=== PATIENT | female | born 1965 | race Caucasian/White ===

== ENCOUNTER 2020-10-04 09:40 | Outpatient (CLI) | payer MEDICARE, MEDICAID, SELFPAY ==
--- NOTE | ~2020-10-04 | XR_ITS ---
XR chest 2V DATE: 10/04/2020 09:55 INDICATION: Shortness of breath. COPD. TECHNIQUE: PA and lateral views COMPARISON: 05/01/2017 PA and lateral chest FINDINGS: There is prominent widening of the right paratracheal stripe as well as some left superior mediastinal widening. CT thorax with intravenous contrast material is recommended for further evaluat ion. There is mild cardiomegaly. No hilar or mediastinal enlargement is detected. No pulmonary infiltrate or consolidation, pleural effusion or pulmonary vascular congestion or pneumo thorax. Diffuse osteopenia. IMPRESSION: Prominence of the right paratracheal and left superior mediastinal soft tissues; CT thora x examination with IV contrast material is recommended Mild cardiomegaly Reviewed, dictated and finalized at location B. IMPRESSION: Prominence of the right paratracheal and left superior mediastinal soft tissues; CT thorax examination with IV contrast material is recommended Mild cardiomegaly
== END 2020-10-04 09:41 | disposition home or self-care (01) ==
PROVIDERS: PCP Family Medicine; Visit Provider Nurse Practitioner
DX: J44.9 Chronic obstructive pulmonary disease, unspecified (principal); R06.02 Shortness of breath; I51.7 Cardiomegaly
CPT/HCPCS: 71046

== ENCOUNTER 2020-10-10 13:54 | Outpatient (CLI) | payer MEDICARE, MEDICAID, SELFPAY ==
--- NOTE | ~2020-10-10 | CT_ITS ---
EXAMINATION:CT diagnostic chest w con DATE: 10/10/2020 14:28 INDICATION: Abnormal chest radiographs. TECHNIQUE: Computed tomography (CT) of the chest was performed with 75 mL Omnipaque 350 intravenous c ontrast. Automated exposure control and iterative reconstruction technique were employed. The dose-le ngth product (DLP) was 932.57 mGy-cm. COMPARISON: Chest 2 views 10/04/2020 FINDINGS: There is mild atelectasis in the lungs bilaterally. No pleural effusion. The heart size is normal. No pericardial effusion. There is mild mediastinal lymphadenopathy, likely reactive. For exam ple, a right paratracheal node measures 10 x 13 mm. Mediastinal lipomatosis is noted. There is mild t horacic spondylosis. IMPRESSION: 1. Mediastinal lipomatosis, which correlates with the chest radiograph abnormality. Reviewed, dictated and finalized at location A. IMPRESSION: 1. Mediastinal lipomatosis, which correlates with the chest radiograph abnormal ity.
[2020-10-10 14:22] LABS: Estimated Glomerular Filt Rate > 60
== END 2020-10-10 13:55 | disposition home or self-care (01) ==
PROVIDERS: PCP Family Medicine; Visit Provider Nurse Practitioner
DX: R91.8 Other nonspecific abnormal finding of lung field (principal); E88.2 Lipomatosis, not elsewhere classified
CPT/HCPCS: 71260; Q9967

== ENCOUNTER → 2020-10-25 00:51 | Outpatient (CLI) | payer MEDICARE, MEDICAID, SELFPAY ==
[2020-10-25 20:45] LABS: SARS-CoV-2 RNA PCR Negative
== END ==
PROVIDERS: PCP Family Medicine; Visit Provider Internal Medicine Critical Care Medicine
DX: Z01.812 Encounter for preprocedural laboratory examination (principal); Z20.822 Contact with and (suspected) exposure to COVID-19
CPT/HCPCS: C9803; U0003; U0005

== ENCOUNTER 2020-10-27 09:04 | Outpatient (CLI) | payer MEDICARE, MEDICAID, SELFPAY ==
--- NOTE | 2020-11-02 14:53 | WPDSLEEPSTUD ---
Sleep Study Date of Study: 10/27/20 Ordering Provider: Dhruv Conn MD Interpreting Physician: Gladis Keenan MD Sleep Study Type: Polysomnogram Height: 1.57 m Weight: 142.882 kg Body Mass Index: 57.6 Neck Circumference (inches): 24 [place]: 12 Reason for Sleep Study JAMARCUS, needs new equipment , now using CPAP 11 cm Prior sleep studies 07/16/2014 : CPAP retitration, optimal pressure 11 cm; BMI 50.3 06/29/2013: CPAP retitration, optimum pressure 10 cm 10/03/2008: CPAP titration, optimal pressure 12 cm 11/04/2006: basic study, JAMARCUS Sleep History Nova Sosa is a 55 year old female with a 20 year history of obstructive sleep apnea, now using equipment that is over 5 years old. this needs to be replaced. She is referred for a re-titration. She uses her device every night. she snores when she does not use PAP machine. Her DME company is [employer]. She frequently awakens at night with heartburn, belching or coughing. She occasionally snores but it is not loud enough that others complain about it. She constantly has trouble sleeping with a cold. She rarely wakes up gasping for breath at night. She frequently has breathing problems at night observed by others. She does not sweat excessively night. She frequently notices her heart pounding or beating irregularly night. She constantly falls asleep during the day, occasionally involuntarily but never while driving. She does not fall asleep while exerting physical effort. She does not have loss of muscle tone was strong emotion. She does not feel paralyzed on waking or falling asleep. She constantly has vivid dreamlike scenes upon awakening or falling asleep. She is constantly afraid to go to sleep. She rarely has nightmares. She frequently remembers her dreams. She constantly has racing thoughts. She occasionally feels sad or depressed. She constantly has anxiety and worries about things. She frequently has muscular tension, frequently notices parts of her body jerking and she frequently kicks at night. She frequently has crawling and aching feelings in her legs. She frequently has leg pain during the night. She frequently has morning jaw pain and frequently grinds her teeth during sleep. She has pain during the day frequently and is bothered by pain at night as well. She constantly wakes up feeling stiff in the morning with sore or achy muscles and pain in the neck and spine. She has fatigue, memory problems, insomnia and feels shy. She does not work outside of the home. She reports gaining 70 lb in the last year. She reports that her health is poor. Normal bedtime is between midnight and 2:00 a.m. falling asleep quickly as she waits until she is very tired before trying to go to sleep. She wakes up typically 2-3 times at night and stays awake for 5 minutes but sometimes as long as 30 minutes. If it seems like she is not falling asleep quickly she does get up out of the bed until she is ready to fall asleep again. She takes naps. She sometimes feels refreshed after a short nap, other times does not wake up feeling refreshed. She is drowsy in the morning for 2 hours. She feels better in the evening compared other times of day. Habits: Never smoked tobacco. Caffeine 1 or 2 servings a day. No alcohol or recreational drugs. FORMERLY [facility] Past Medical History Medical History (Updated 11/02/20 @ 15:12 by Gladis Keenan MD) Arthritis Asthma-COPD overlap syndrome Diabetes Heartburn Hypertension Neuropathy Obstructive sleep apnea Surgical History Surgical History (Updated 11/02/20 @ 15:12 by Gladis Keenan MD) History of hysterectomy Family History Family History (Updated 02/26/18 @ 13:33 by DOCTOR UNKNOWN) Father Family history of chronic obstructive pulmonary disease Acute myocardial infarction Grandparent Family history of chronic obstructive pulmonary disease Other Diabetes mellitus Hypertension Social History Social Histo
[2020-11-02 16:28] VITALS: BMI 57.6
== END 2020-10-27 09:05 | disposition home or self-care (01) ==
LOC: ANHCSM 09:05
PROVIDERS: PCP Family Medicine; Visit Provider Family Medicine
DX: G47.33 Obstructive sleep apnea (adult) (pediatric) (principal); E66.9 Obesity, unspecified; Z68.43 Body mass index [BMI] 50.0-59.9, adult; E11.9 Type 2 diabetes mellitus without complications; I10 Essential (primary) hypertension; Z79.899 Other long term (current) drug therapy
CPT/HCPCS: 95810

== ENCOUNTER 2022-05-29 11:03 | Outpatient (CLI) | payer OTHER, SELFPAY ==
--- NOTE | ~2022-05-29 | XR_ITS ---
EXAMINATION: XR foot LT min 3V DATE: 05/29/2022 11:27 INDICATION: Plantar foot pain TECHNIQUE: Dorsoplantar, lateral, and 2 oblique views of the left foot were obtained. COMPARISON: 01/15/2019 FINDINGS: There is moderate osteoarthritis at the first metatarsophalangeal joint and multiple interp halangeal joints. No fractures identified. Bone alignment is normal. The soft tissues are normal. A p lantar calcaneal enthesophyte is noted. IMPRESSION: 1. No acute osseous abnormality. Reviewed, dictated and finalized at location F. ING CUTTER
== END 2022-05-29 11:04 | disposition home or self-care (01) ==
PROVIDERS: PCP Family Medicine; Visit Provider Nurse Practitioner Adult Health
DX: M79.672 Pain in left foot (principal)
CPT/HCPCS: 73630

== ENCOUNTER 2025-04-24 13:08 | Outpatient (CLI) | payer MEDICARE, MEDICAID, SELFPAY ==
--- NOTE | ~2025-04-24 | XR_ITS ---
EXAMINATION: XR chest 2V, 04/24/2025 13:20 CDT HISTORY: Shortness of Breath, Cough COMPARISON: No comparisons available. Technique: 2 views obtained. Findings: The lungs are clear, no effusion. No pneumothorax. Heart is normal size. Mediastinal and hilar contours are within normal limits. Bony thorax no acute abnormality. Impression: No acute cardiopulmonary abnormality. Reviewed, dictated and finalized at location P. Impression: No acute cardiopulmonary abnormality.
--- OUTSIDE RECORDS SUMMARY | 2025-04-24 13:12 | XMS_ITS | Encounter Summary ---
Author Organization [facility] Address [address] [address] Phone Care Team Providers Care Shoddy Mill Worker Name Role Phone Dhruv Conn MD Primary Care Provider Arielle Steward MD Unavailable Reason for Visit * Reason Comments Medication Refill Encounter Details Date Type Department Care Team (Late Contact Info) Description 01/04/2023 Refill [facility] - Endocrinology - [place] [address] [place] [address] Arielle Steward MD [address] [address] Medication Refill Social History Tobacco Use Types Packs/Day Years Used Date Smoking Tobacco: Never Smokeless Tobacco: Never Alcohol Use Standard Drinks/Week Comments No 0 (1 standard drink = 0.6 oz pur e alcohol) Sexually Active Control Partners Comments Yes Male Comments No Sex and Gender Information Value Date Recorded Sex Assigned at Not on file Legal Sex Female 7:38 PM CDT Gender Identity Not on file Sexual Orientation Not on file COVID-19 Exposure Response Date Recorded In the last 10 days, have yo u been in contact with someone who was confirmed or suspected to have Coronavirus/COVID-19? No / Unsure 01/06/2023 3:06 PM CDT documented as of this encounter Miscellaneous Notes * Telephone Encounter - Breann Carvajal RN - 01/04/2023 3:28 PM CDT Requested Prescriptions Pending Prescriptions Disp Refills ??? Insulin Pen Needle (Easy Touch Pen [place]) 32G X 5 MM Misc [Pharmacy Med Name: EASY TOUCH PEN NEEDLES [id number]] 500 Each 3 Sig: USE FIVE TIMES DAILY DIRECTED Next appt: 01/07/2023 documented in this encounter Plan of Treatment Upcoming Encounters Date Type Department Care Team (Late st Contact Info) Description 07/22/2025 1:30 PM FIELD [employer] AD[employer]OCATE Office Visit [facility] - Endocrinology - [place] [address] [place] [phone] Arielle Steward MD [address] [phone] documented as of this encounter Visit Diagnoses Not on filedocumented in this encounter Care Teams Shoddy Mill Worker Relationship Specialty Start Date End Date Dhruv Conn MD [address] [address] PCP - General Family Medicine 10/01/16 Arielle Steward MD [address] [phone] Consulting Physician Endocrinology 01/30/22 documented as of this encounter
--- OUTSIDE RECORDS SUMMARY | 2025-04-24 13:12 | XMS_ITS | Clinical Summary ---
Author Organization [facility] Address [address] [address] Phone Care Team Providers Care Census Clerk Name Role Phone Dhruv Conn MD Primary Care Provider [phone] Arielle Steward MD Unavailable Allergies No known active allergies Medications escitalopram (LEXAPRO) 10 MG Tablet Take 10 mg by mouth daily. Active Ergocalcifero l (VITAMIN D2 PO) Take 50,000 Units by mouth once a week. Active lisinopril (PRINIVIL, ZESTRIL) 20 MG Tablet Take 20 mg by mouth daily. Active PROAIR HFA 108 (90 Base) MCG/ACT Aerosol Solution 019 Active TRELEGY ELLIPTA 100-62.5-25 MCG/INH AEROSOL POWDER, BREATH ACTIVATED 019 Active omeprazole (PRILOSEC) 40 MG CAPSULE DELAYED RELEASE Active gabapentin (NEURONTIN) 300 MG Capsule TAKE 1 CAPSULE BY MOUTH THREE TIMES DAILY 020 Active Glucose Blood (GLUCOCARD EXPRESSION TEST) Strip 1 Strip by In Vitro route 4 times daily. Test four times daily. 400 Strip 3 020 Active Blood Glucose Monitoring Suppl (OneTouch Verio) w/Device Kit 1 Kit by Does not apply route 4 times daily. Test blood glucose 4x daily. E11.42, insulin dependent 1 Kit 021 Active OneTouch Delica Lancets 33G Misc 1 Lancet by Does not apply route 4 times daily. Test blood glucose 4x daily. E11.42, insulin dependent 400 Lancet 3 021 Active OneTouch Delica Lancets 33G MiscIndicatio ns:Type 2 diabetes mellitus with diabetic polyneuropath y, with long-term current use of insulin 1 Lancet by Does not apply route 4 times daily. Use to test blood glucose 3x daily. E11.42, insulin dependent 300 Lancet 3 021 Active Glucose Blood (OneTouch Verio) Strip Test blood glucose 3x daily. E11.42, insulin dependent 300 Strip 3 021 Active metoprolol Succinate (TOPROL-XL) 50 MG TABLET SR 24 HR Take 50 mg by mouth daily. Active hydroCHLOROth iazide 25 MG Tablet Take 25 mg by mouth daily. Active HYDROcodone-a cetaminophen (NORCO) 5-325 MG Tablet Take 1 Tablet by mouth 3 times daily. Active ibuprofen (MOTRIN) 600 MG Tablet Active ipratropium (ATROVENT) 0.02 % Solution USE 1 VIAL VIA NEBULIZER FOUR TIMES DAILY Active montelukast (SINGULAIR) 10 MG Tablet Take 10 mg by mouth every morning. Active atorvastatin (LIPITOR) 40 MG Tablet Take 1 Tablet by mouth daily. 90 Tablet 1 023 Active Insulin Pen Needle (Easy Touch Pen [place]) 32G X 5 MM MiscIndicatio ns:Type 2 diabetes mellitus with diabetic polyneuropath y, with long-term current use of insulin Use to inject insulin 5x daily. 500 Each 3 024 Active Insulin Pen Needle (BD Pen Needle [place] U/F) 32G X 4 MM Misc 1 Pen Needle by Does not apply route 5 times daily. 500 Pen Needle 3 024 Active Insulin Degludec FlexTouch 100 UNIT/ML Solution Pen-injector 40 Units by Subcutaneous route 2 times daily. 75 mL 1 025 Active Tirzepatide (Mounjaro) 12.5 MG/0.5ML Solution Auto-injector 12.5 mg by Subcutaneous route once a week. 6 mL 1 09/24/2 025 Active Insulin Aspart FlexPen 100 UNIT/ML Solution Pen-injector INJECT 60-50-60 UNITS SUBCUTANEOUSLY BEFORE EACH MEAL. CORRECTIOINAL FACTOR INSULIN OF 1:10 IF GREATER THAN 140 MG/DL, UP TO 200 UNITS PER DAY. 180 mL 1 025 Active NovoLOG FlexPen 100 UNIT/ML Solution Pen-injector INJECT 60-50-60 UNITS SUBCUTANEOUSLY BEFORE EACH MEAL. CORRECTIOINAL FACTOR INSULIN OF 1:10 IF GREATER THAN 140 MG/DL, UP TO 200 UNITS PER DAY. 180 mL 1 025 2024 Discontinued(R sydnee) Tirzepatide (Mounjaro) 12.5 MG/0.5ML Solution Auto-injector 12.5 mg by Subcutaneous route once a week. 6 mL 025 2024 Discontinued Active Problems Problem Noted Date Diagnosed Date Type 2 diabetes mellitus wit h diabetic polyneuropathy, with long-term current use of insulin 11/25/2018 Class 3 severe obesity due t o excess calories with serious comorbidity and body mass index (BMI) of 50.0 to 59.9 in adult 11/25/2018 Dyslipidemia 11/25/2018 High blood pressure 11/25/2018 Encounters Date Type Department Care Team Description 04/13/2025 Refill [facility] - Endocr[facility]ology - [place] [address] [place] [address] Arielle Steward MD Medication Refill 04/07/2025 Refill [facility] End[facility] [address] [place] [address] Arielle Steward MD Medication Refill from Last 3 Months Immunizations Immunization Administration Dates Next Due Covid-19, Mrna, Lnp-s, Pf, 1 00 Mcg Or 50 Mcg Dose (MODERNA) 10/20/2020,09/22/2020 Influenza, Seasonal, Injectable, Undefined 06/24 Pneumococcal Vaccine Adult - 23 Valent 7 Family History Medical History Relation Name Comments No Known Problems Brother Chronic Obstructive Pulmonary Disease Father No Known Problems Mother No Known Problems Sister Relation Name Status Comments Brother Alive Father Mother Alive Sister Alive Social History Tobacco Use Types Packs/Day Years Used Date Smoking Tobacco: Never Smokeless Tobacco: Never Tobacco Cessation:Counseling Given: Not Answered Alcohol Use Standard Drinks/Week Comments No 0 (1 standard drink = 0.6 oz pur e alcohol) Sexually Active Control Partners Comments Yes Male Comments No Sex and Gender Information Value Date Recorded Sex Assigned at Not on file Legal Sex Female 7:38 PM CDT Gender Identity Not on file Sexual Orientation Not on file Last Filed Vital Signs Vital Sign Reading Time Taken Comments Blood Pressure 142/76 01/18/2025 1:35 PM CDT Pulse 80 01/18/2025 1:35 PM CDT Temperature 36.7 C (98.1 F) 01/18/2025 1:35 PM CDT Respiratory Rate 22 01/18/2025 1:35 PM CDT Oxygen Saturation 96% 01/18/2025 1:35 PM CDT Inhaled Oxygen Concentration - - Weight 148.3 kg (327 lb) 01/18/2025 1:35 PM CDT Height 157.5 cm (5' 2) 02/10/2024 8:58 AM CDT Body Mass Index 59.81 02/10/2024 8:58 AM CDT Plan of Treatment Upcoming Encounters Date Type Department Care Team (Late st Contact Info) Description 07/22/2025 1:30 PM CABINET PROFESSIONAL Office Visit [facility] - Endocrinology - [place] [address] [place] [address] Arielle Steward MD [address] [phone] Health Maintenance Due Date Last Done Comments Diabetes: Foot Exam 1966 Hepatitis C Virus (HCV) Screening 1966 Mammogram 1966 TdaP Immunization 1966 Hepatitis B Immunization (1 of 3 - 19+ 3-dose series) 1985 Cologuard 2011 Colonoscopy 2011 Colorectal Cancer Screening 2011 Immunochemical Fecal Occult Blood 2011 Zoster Immunization (1 of 2) 01/26/2016 Medicare Initial AWV [id number] 06/14/2017 Pneumococcal Immunization (50+ years) (2 of 2 - PCV) 12/03/2017 12/03/2016 Diabetes: Eye Exam 11/26/2018 11/26/2017 Diabetes: Nephropathy Screening 02/10/2025 02/11/2024, 02/11/2024, 01/07/2023, Additional history exists Influenza Immunization (#1) 2025 06/24/2014 SARS-COV-2 Immunization ( season) 2025 10/20/2020, 09/22/2020 Diabetes: Hemoglobin A1c 07/21/2025 025, 08/05/2024, 02/10/2024, Additional history exists Respiratory Syncytial Virus (RSV) Immunization (Adult) (1 - 1-dose 75+ series) 2041 Pneumococcal Immunization Combined Discontinued 12/03/2016 Human Papillomavirus (HPV) Immunization Aged Out No longer eligible based on patient's age to complete this topic Meningococcal Immunization (ACWY) Aged Out No longer eligible based on patient's age to complete this topic Rotavirus Immunization Aged Out No lo nger eligible based on patient's age to complete this topic Procedures Procedure Name Priority Date/Time Associated Diagnosis Comments POCT GLYCOSYLATED HEMOGLOBIN Routine 01/18/2025 1:41 PM CDT Type 2 diabetes mellitus with diabetic polyneuropathy, with long-term current use of insulin (HCC) UR MICROALBUMIN/CREATINI NE RATIO RANDOM Routine 02/11/2024 9:18 AM CDT Type 2 diabetes mellitus with diabetic polyneuropathy, with long-term current use of insulin (HCC) from Last 3 Months or Most Recently Relevant to Health Maintenance Results * (ABNORMAL) POCT GLYCOSYLATED HEMOGLOBIN (01/18/2025 1:41 PM CDT) HGB-A1C 6.6(A) 4 - 6 % Blood 01/18/2025 1:41 PM CDT us Arielle Steward MD POINT OF CARE TESTING (MANUAL) F inal Result * (ABNORMAL) UR MICROALBUMIN/CREATININE RATIO RANDOM (02/11/2024 9:18 AM CDT) RAN UR MICROALBUMIN 16.82 mg/dL 02/11/2024 10:26 AM CDT [facility] Comment:No reference range h as been established. Consider Clinical Correlation. CREATININE URINE 135.3 mg/dL 02/11/20 10:26 AM CDT [facility] Comment:No reference range h as been established. Consider Clinical Correlation. ALB/CREAT RATIO 124(H) 0 - 30 mg/g CRE 02/11/2024 10:26 AM CDT [facility] Urine Non-Phlebotomy Collection / Unknown 02/11/2024 9:18 AM CDT 02/11/2024 10:05 AM CDT us Arielle Steward MD URINE ORDERABLES Final Result [facility] [address] [place] [address] from Last 3 Months or Most Recently Relevant to Health Maintenance Insurance MEDICARE Care Teams Census Clerk Relationship Specialty Start Date End Date Dhruv Conn MD [address] [phone] PCP - General Family Medicine 10/01/16 Arielle Steward MD [address] [address] Consulting Physician Endocrinology 01/30/22
== END 2025-04-24 13:09 | disposition home or self-care (01) ==
PROVIDERS: PCP Family Medicine; Visit Provider Nurse Practitioner Family
DX: R06.02 Shortness of breath (principal); R05.9 Cough, unspecified
CPT/HCPCS: 71046

== ENCOUNTER 2025-05-26 13:36 | Outpatient (CLI) | payer MEDICARE, MEDICAID, SELFPAY ==
--- NOTE | ~2025-05-26 | XR_ITS ---
Examination: XR chest 2V Clinical History: Shortness of breath, cough unspecified Comparison: 04/24/2025 Technique: PA and Lateral Findings: Heart size enlarged. Lungs clear. No acute bony abnormality. IMPRESSION: 1. No change or acute cardiopulmonary findings. Reviewed, dictated and finalized at location R. T ROLLER OPERATOR
--- OUTSIDE RECORDS SUMMARY | 2025-05-26 14:41 | XMS_ITS | Clinical Summary ---
Author Organization [facility] Address [address] [address] Phone Care Team Providers Care Generation Mechanic Helper Name Role Phone Dhruv Conn MD Primary Care Provider [phone] Arielle Steward MD Unavailable Allergies No known active allergies Medications escitalopram (LEXAPRO) 10 MG Tablet Take 10 mg by mouth daily. Active Ergocalciferol (VITAMIN D2 PO) Take 50,000 Units by mouth once a week. Active lisinopril (PRINIVIL, ZESTRIL) 20 MG Tablet Take 20 mg by mouth daily. Active PROAIR HFA 108 (90 Base) MCG/ACT Aerosol Solution 9 Active TRELEGY ELLIPTA 100-62.5-25 MCG/INH AEROSOL POWDER, BREATH ACTIVATED 9 Active omeprazole (PRILOSEC) 40 MG CAPSULE DELAYED RELEASE 9 Active gabapentin (NEURONTIN) 300 MG Capsule TAKE 1 CAPSULE BY MOUTH THREE TIMES DAILY 0 Active Glucose Blood (GLUCOCARD EXPRESSION TEST) Strip 1 Strip by In Vitro route 4 times daily. Test four times daily. 400 Strip 3 0 Active Blood Glucose Monitoring Suppl (OneTouch Verio) w/Device Kit 1 Kit by Does not apply route 4 times daily. Test blood glucose 4x daily. E11.42, insulin dependent 1 Kit 1 Active OneTouch Delica Lancets 33G Misc 1 Lancet by Does not apply route 4 times daily. Test blood glucose 4x daily. E11.42, insulin dependent 400 Lancet 3 1 Active OneTouch Delica Lancets 33G MiscIndication s:Type 2 diabetes mellitus with diabetic polyneuropathy , with long-term current use of insulin 1 Lancet by Does not apply route 4 times daily. Use to test blood glucose 3x daily. E11.42, insulin dependent 300 Lancet 3 1 Active Glucose Blood (OneTouch Verio) Strip Test blood glucose 3x daily. E11.42, insulin dependent 300 Strip 3 1 Active metoprolol Succinate (TOPROL-XL) 50 MG TABLET SR 24 HR Take 50 mg by mouth daily. 2 Active hydroCHLOROthi azide 25 MG Tablet Take 25 mg by mouth daily. 2 Active HYDROcodone-ac etaminophen (NORCO) 5-325 MG Tablet Take 1 Tablet by mouth 3 times daily. 2 Active ibuprofen (MOTRIN) 600 MG Tablet 2 Active ipratropium (ATROVENT) 0.02 % Solution USE 1 VIAL VIA NEBULIZER FOUR TIMES DAILY 2 Active montelukast (SINGULAIR) 10 MG Tablet Take 10 mg by mouth every morning. 2 Active atorvastatin (LIPITOR) 40 MG Tablet Take 1 Tablet by mouth daily. 90 Tablet 1 3 Active Insulin Pen Needle (Easy Touch Pen [place]) 32G X 5 MM MiscIndication s:Type 2 diabetes mellitus with diabetic polyneuropathy , with long-term current use of insulin Use to inject insulin 5x daily. 500 Each 3 4 Active Insulin Pen Needle (BD Pen Needle [place] U/F) 32G X 4 MM Misc 1 Pen Needle by Does not apply route 5 times daily. 500 Pen Needle 3 4 Active Insulin Degludec FlexTouch 100 UNIT/ML Solution Pen-injector 40 Units by Subcutaneous route 2 times daily. 75 mL 1 5 Active Tirzepatide (Mounjaro) 12.5 MG/0.5ML Solution Auto-injector 12.5 mg by Subcutaneous route once a week. 6 mL 1 5 Active Insulin Aspart FlexPen 100 UNIT/ML Solution Pen-injector INJECT 60-50-60 UNITS SUBCUTANEOUSLY BEFORE EACH MEAL. CORRECTIOINAL FACTOR INSULIN OF 1:10 IF GREATER THAN 140 MG/DL, UP TO 200 UNITS PER DAY. 180 mL 1 5 Active Active Problems Problem Noted Date Diagnosed Date Type 2 diabetes mellitus wit h diabetic polyneuropathy, with long-term current use of insulin 11/25/2018 Class 3 severe obesity due t o excess calories with serious comorbidity and body mass index (BMI) of 50.0 to 59.9 in adult 11/25/2018 Dyslipidemia 11/25/2018 High blood pressure 11/25/2018 Encounters Date Type Department Care Team Description 04/13/2025 [facility] [address] [place] [address] Arielle Steward MD Medication Refill 04/07/[address] [address] [place] [address] Arielle Steward MD Medication Refill from Last [...] st Contact Info) Description 07/22/2025 1:30 PM VEGETABLE PACKER Office Visit [facility] - [facility] - [place] [address] [place] [phone] Arielle Steward MD [address] [address] Health Maintenance Due Date Last Done Comments Diabetes: Foot Exam 1966 Hepatitis C Virus (HCV) Screening 1966 Mammogram 1966 TdaP Immunization 1966 Hepatitis B Immunization (1 of 3 - 19+ 3-dose series) 1985 Cologuard 2011 Colonoscopy 2011 Colorectal Cancer Screening 2011 Immunochemical Fecal Occult Blood 2011 Respiratory Syncytial Virus (RSV) Immunization (Adult) (1 - Risk 50-74 years 1-dose series) 01/26/2016 Zoster Immunization (1 of 2) 01/26/2016 Medicare Initial AWV G0438 06/14/2017 Pneumococcal Immunization (50+ years) (2 of 2 - PCV) 12/03/2017 12/03/2016 Diabetes: Eye Exam 11/26/2018 11/26/2017 Diabetes: Nephropathy Screening 02/10/2025 02/11/2024, 02/11/2024, 01/07/2023, Additional history exists Influenza Immunization (#1) 2025 06/24/2014 SARS-COV-2 Immunization ( season) 2025 10/20/2020, 09/22/2020 Diabetes: Hemoglobin A1c 07/21/2025 025, 08/05/2024, 02/10/2024, Additional history exists Pneumococcal Immunization Combined Discontinued 12/03/2016 Human Papillomavirus [...] 6 % Blood 01/18/2025 1:41 PM CDT Arielle Steward MD POINT OF CARE TESTING (MANUAL) F inal Result * (ABNORMAL) UR MICROALBUMIN/CREATININE RATIO RANDOM (02/11/2024 9:18 AM CDT) RAN UR MICROALBUMIN 16.82 mg/dL 02/11/2024 10:26 AM CDT [facility] Comment:No reference range h as been established. Consider Clinical Correlation. CREATININE URINE 135.3 mg/dL 02/11/20 10:26 AM CDT [facility] Comment:No reference range h as been established. Consider Clinical Correlation. ALB/CREAT RATIO 124(H) 0 - 30 mg/g CRE 02/11/2024 10:26 AM CDT [facility] Urine Non-Phlebotomy Collection / Unknown 02/11/2024 9:18 AM CDT 02/11/2024 10:05 AM CDT Arielle Steward MD URINE ORDERABLES Final Result [facility] [address] [place] [address] from Last 3 Months or Most Recently Relevant to Health Maintenance Insurance MEDICARE Care Teams Generation Mechanic Helper Relationship Specialty Start Date End Date Dhruv Conn MD [address] [facility] [address] [address] PCP - General Family Medicine 10/01/16 Arielle Steward MD [address] [phone] Consulting Physician Endocrinology 01/30/22
--- OUTSIDE RECORDS SUMMARY | 2025-05-26 14:41 | XMS_ITS | Encounter Summary ---
Author Organization [facility] Address [address] [place] [id number] Phone Care Team Providers Care Tailor Women'S Garment Alteration Name Role Phone Dhruv Conn MD Primary Care Provider [phone] Arielle Steward MD Unavailable Reason for Visit * Reason Comments Medication Refill Encounter Details Date Type Department Care Team (Late st Contact Info) Description 12/25/2023 [facility]ill [facility] [address] [place] [address] Arielle Steward MD [address] [address] Medication Refill Social History Tobacco [...] on file Sexual Orientation Not on file documented as of this encounter Miscellaneous Notes * Telephone Encounter - Breann Carvajal RN - 12/26/2023 10:56 AM CDT Medication(s) refused due to duplicate request. Chart reviewed to insure medication was already refilled at pharmacy that is currently requesting refill. documented in this encounter Plan of Treatment Upcoming Encounters Date Type Department Care Team (Late st Contact Info) Description 07/22/2025 1:30 PM INSTALLMENT LOAN COLLECTOR Office Visit [facility] - [place] [address] [place] [address] Arielle Steward MD [address] [address] documented as of this encounter Visit Diagnoses Not on filedocumented in this encounter Care Teams Tailor Women'S Garment Alteration Relationship Specialty Start Date End Date Dhruv Conn MD [address] [address] PCP - General Family Medicine 10/01/16 Arielle Steward MD [address] [address] Consulting Physician Endocrinology 01/30/22 documented as of this encounter
--- OUTSIDE RECORDS SUMMARY | 2025-05-26 14:41 | XMS_ITS | Encounter Summary ---
Author Organization [facility] Address [address] [place] [address] Phone Care Team Providers Care Space Physicist Name Role Phone Dhruv Conn MD Primary Care Provider [phone] Arielle Steward MD Unavailable Reason for Visit * Reason Comments Medication Refill Encounter Details Date Type Department Care Team (Late st Contact Info) Description 01/04/2023 [facility]ill [facility] [address] [place] [address] Arielle Steward MD [address] [address] Medication Refill Social History Tobacco [...] ??? Insulin Pen Needle (Easy Touch Pen [place]) 32G X 5 MM Misc [Pharmacy Med Name: EASY TOUCH PEN NEEDLES [id number]] 500 Each 3 Sig: USE FIVE TIMES DAILY DIRECTED Next appt: 01/07/2023 documented in this encounter Plan of Treatment Upcoming Encounters Date Type Department Care Team (Late st Contact Info) Description 07/22/2025 1:30 PM CAGE MAKER Office Visit [facility] - [place] [address] [place] [phone] Arielle Steward MD [address] [phone] documented as of this encounter Visit Diagnoses Not on filedocumented in this encounter Care Teams Space Physicist Relationship Specialty Start Date End Date Dhruv Conn MD [address] [phone] PCP - General Family Medicine 10/01/16 Arielle Steward MD [address] [phone] Consulting Physician Endocrinology 01/30/22 documented as of this encounter
== END 2025-05-26 13:37 | disposition home or self-care (01) ==
PROVIDERS: PCP Family Medicine; Visit Provider Nurse Practitioner Family
DX: R06.02 Shortness of breath (principal); R05.9 Cough, unspecified
CPT/HCPCS: 71046